=== PATIENT | male | born 1965 | race Caucasian/White ===

== ENCOUNTER → 2020-07-26 | Day surgery (SDC) | payer OTHER ==
[~2020-07-26] MED LIST: ADULT LOW DOSE81 MG PO; ASPIRIN EC81 MG PO; CLOPIDOGREL75 MG PO; COZAAR 50MG TAB50 MG PO; COZAAR100 MG PO; EFFIENT10 MG PO; FISH OIL 1,0001 EAC4 PO; IMDUR ER TAB 3030 MG PO; LIPITOR TAB 1010 MG PO; NEXIUM20 MG PO; NORVASC 5 MG TAB5 MG PO; PANTOPRAZOLE SO40 MG PO; RANEXA500 MG PO; VITAMIN D32000 UNI1 PO; ZESTRIL 40 MG T40 MG PO
== END | disposition home or self-care (01) ==
LOC: OR 06:59
DX: Z12.11 Encounter for screening for malignant neoplasm of colon (principal); K64.1 Second degree hemorrhoids; I25.10 Atherosclerotic heart disease of native coronary artery without angina pectoris; I10 Essential (primary) hypertension; E78.00 Pure hypercholesterolemia, unspecified; Z86.010 Personal history of colon polyps; Z95.5 Presence of coronary angioplasty implant and graft; Z88.8 Allergy status to other drugs, medicaments and biological substances; Z79.82 Long term (current) use of aspirin; Z79.899 Other long term (current) drug therapy
CPT/HCPCS: J2704; J7040

== ENCOUNTER → 2020-09-19 | Outpatient (CLI) | payer OTHER ==
[~2020-09-19] MED LIST changes: +ISOSORBIDE MONO30 MG PO; +LOSARTAN POTASS50 MG PO; +NITROSTAT 0.40.4 MG SL
== END ==
LOC: HEART 5 07:49
DX: I25.119 Atherosclerotic heart disease of native coronary artery with unspecified angina pectoris (principal); I10 Essential (primary) hypertension; E78.5 Hyperlipidemia, unspecified; I08.3 Combined rheumatic disorders of mitral, aortic and tricuspid valves
CPT/HCPCS: 93306

== ENCOUNTER → 2020-09-21 | Outpatient (CLI) | payer OTHER | LOC: HEART 5 07:45 | DX: I25.119 Atherosclerotic heart disease of native coronary artery with unspecified angina pectoris (principal); I10 Essential (primary) hypertension; E78.5 Hyperlipidemia, unspecified | CPT/HCPCS: 78452; A9502 ==

== ENCOUNTER → 2020-09-28 | Outpatient (CLI) | payer OTHER ==
[2020-09-28 12:21] LABS: HEMOGLOBIN 13.9 gm/dl (14.0-17.5); RED BLOOD COUNT 4.67 M/UL (4.20-5.50); WHITE BLOOD COUNT 5.8 K/UL (4.5-11.0)
[2020-09-28 12:41] LABS: BUN/CREATININE RATIO 21 (0-10)
== END ==
LOC: LAB 11:30
PROVIDERS: Internal Medicine Interventional Cardiology
DX: I25.119 Atherosclerotic heart disease of native coronary artery with unspecified angina pectoris (principal); R07.9 Chest pain, unspecified; R00.2 Palpitations; E78.5 Hyperlipidemia, unspecified
CPT/HCPCS: 36415; 80048; 85025; 85610; 85730; 93005

== ENCOUNTER 2020-10-16 11:28 | Outpatient (CLI) | payer OTHER ==
[~2020-10-16] VITALS: Ht 177.8 cm; Wt 81.6 kg
[~2020-10-16 11:28] MED LIST changes: -ISOSORBIDE MONO30 MG PO; -LOSARTAN POTASS50 MG PO; -NITROSTAT 0.40.4 MG SL
[2020-10-16 12:15] LABS: RED BLOOD COUNT 4.66 M/UL (4.20-5.50); WHITE BLOOD COUNT 5.4 K/UL (4.5-11.0)
[2020-10-16 12:30] LABS: BUN/CREATININE RATIO 14 (0-10)
[2020-10-16] MEDS ORDERED: LOSARTAN POTASS50 MG PO (12:32)
[2020-10-16] MEDS ORDERED: NITROSTAT 0.40.4 MG SL (12:33)
[2020-10-16] MEDS ORDERED: ISOSORBIDE MONO30 MG PO (12:34)
[2020-10-16 22:23] LABS: HEMOGLOBIN 12.9 gm/dl (14.0-17.5); RED BLOOD COUNT 4.29 M/UL (4.20-5.50)
[2020-10-16 22:26] LABS: WHITE BLOOD COUNT 7.9 K/UL (4.5-11.0)
[2020-10-16 22:42] LABS: BUN/CREATININE RATIO 13 (0-10)
[2020-10-17 05:14] LABS: RED BLOOD COUNT 4.34 M/UL (4.20-5.50)
[2020-10-17 05:32] LABS: BUN/CREATININE RATIO 9 (0-10)
== END 2020-10-17 07:53 | disposition short-term general hospital (02) ==
LOC: CATH 11:28 → PROG CARE 16:27 → CATH 10-17 07:53
PROVIDERS: Internal Medicine Interventional Cardiology
DX: I25.118 Atherosclerotic heart disease of native coronary artery with other forms of angina pectoris (principal); I10 Essential (primary) hypertension; E78.5 Hyperlipidemia, unspecified; I49.5 Sick sinus syndrome; Z95.5 Presence of coronary angioplasty implant and graft; Z88.8 Allergy status to other drugs, medicaments and biological substances; Z79.82 Long term (current) use of aspirin; Z79.899 Other long term (current) drug therapy
CPT/HCPCS: 36415; 80048; 85025; 85027; 85610; 85730; 92920; 93005; 99152; 99153; C1725; C1769; C1874; C1887; C1894; J0461; J1644; J2250; J3246; J7030; J7040; Q9967